=== PATIENT | female | born 1935 | race Caucasian/White ===

== ENCOUNTER → 2019-09-22 | Outpatient (CLI) | payer MEDICARE, BC | END | disposition home or self-care (01) | LOC: CFH 10:29 | PROVIDERS: ATTEND Family Medicine | DX: Z12.31 Encounter for screening mammogram for malignant neoplasm of breast (principal); N64.89 Other specified disorders of breast | CPT/HCPCS: 77063; 77067 ==

== ENCOUNTER 2019-10-21 10:35 | Outpatient (CLI) | payer MEDICARE, BC | END 2019-10-21 23:59 | disposition home or self-care (01) | LOC: CFH 10:35 | PROVIDERS: ATTEND Internal Medicine Cardiovascular Disease | DX: I08.0 Rheumatic disorders of both mitral and aortic valves (principal); I10 Essential (primary) hypertension | CPT/HCPCS: 93306 ==

== ENCOUNTER 2021-04-07 12:04 | Emergency (ER) | payer MEDICARE, BC ==
[~2021-04-07] VITALS: Ht 165.1 cm; Wt 75.9 kg
--- NOTE | 2021-04-07 13:31 | NUR ---
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
--- NOTE | 2021-04-07 13:40 | NUR ---
PT AMBULATING TO BATHROOM ON HER OWN. PT STEADY, WITHOUT CANE.
[2021-04-07] MEDS ORDERED: ASPIRIN 81 MG TABLET CHEW PO ONE (14:00)
--- NOTE | 2021-04-07 14:20 | NUR ---
PT PLACED ON VITALS MONITORS WITH [employer] OFF[employer]ER. PT ABLE TO PROVIDE URINE SAMPLE. CALL LIGHT WITHIN REACH. PT FAMILY AT BEDSIDE.
[2021-04-07 14:30] VITALS: BP 149/55
[2021-04-07 14:48] LABS: BASOPHILS % (AUTO) 1 % (0-1); EOSINOPHILS % (AUTO) 4 % (1-7); LYMPHOCYTES % (AUTO) 36 % (22-44); MEAN CORPUSCULAR HEMOGLOBIN 31.8 pg (27.0-34.8); MEAN CORPUSCULAR HGB CONC 33.9 g/dL (32.4-35.8); MONOCYTES % (AUTO) 9 % (2-9); NEUTROPHILS % (AUTO) 50 % (42-75); PLATELET COUNT 317 x10^3/uL (130-400); RED BLOOD COUNT 4.27 x10^6/uL (3.82-5.3); RED CELL DISTRIBUTION WIDTH 13.6 % (9.6-15.2)
[2021-04-07 14:56] LABS: ALBUMIN 4.2 g/dL (3.4-5.0); ANION GAP 4 mmol/L (5-15); CALCIUM 9.5 mg/dL (8.5-10.1); CHLORIDE 111 mmol/L (98-107); INTERNATIONAL NORMALIZED RATIO 2.23 (0.93-1.1)
[2021-04-07 15:00] LABS: TROPONIN I < 0.015 ng/mL (0.000-0.045)
[2021-04-07 15:11] LABS: <PLATELET ESTIMATE> ADEQUATE; <RBC MORPHOLOGY> NORMAL; LARGE PLATELETS 1+
[2021-04-07 15:12] LABS: GIANT PLATELETS 1+
[2021-04-07] MEDS ORDERED: ASPIRIN 81 MG TABLET CHEW ONE (16:01)
--- NOTE | 2021-04-07 16:10 | NUR ---
PT ABLE TO DRESS HERSELF, PT IN HALLWAY LOOKING FOR DC PAPERWORK. PT ASKED TO WAIT IN HER ROOM FOR PAPERS.
== END 2021-04-07 16:33 | disposition home or self-care (01) ==
LOC: ED 16:13
DX: R07.89 Other chest pain (principal); M79.602 Pain in left arm; M54.2 Cervicalgia; M25.512 Pain in left shoulder; I10 Essential (primary) hypertension; E78.5 Hyperlipidemia, unspecified
CPT/HCPCS: 36415; 71045; 80048; 82040; 84484; 85025; 85610; 85730; 93005; 99285

== ENCOUNTER → 2021-05-07 | Outpatient (CLI) | payer MEDICARE, BC | END | disposition home or self-care (01) | LOC: CFH 11:16 | PROVIDERS: ATTEND Internal Medicine | DX: M81.8 Other osteoporosis without current pathological fracture (principal); N95.8 Other specified menopausal and perimenopausal disorders | CPT/HCPCS: 77080 ==

== ENCOUNTER 2021-06-05 13:47 | Outpatient (CLI) | payer MEDICARE, BC ==
[2021-06-05 14:17] LABS: INTERNATIONAL NORMALIZED RATIO 1.82 (0.93-1.1); PROTHROMBIN TIME 18.9 Seconds (9.6-11.5)
== END 2021-06-05 23:59 | disposition home or self-care (01) ==
LOC: LAB 13:47
PROVIDERS: ATTEND Internal Medicine Cardiovascular Disease
DX: Z29.9 Encounter for prophylactic measures, unspecified (principal); D68.51 Activated protein C resistance
CPT/HCPCS: 36415; 85610